=== PATIENT | female | born 1965 | race African-American/Black ===

== ENCOUNTER 2021-02-28 17:57 | Emergency (ER) | payer SELFPAY ==
[~2021-02-28] VITALS: Ht 157.5 cm; Wt 86.2 kg
[2021-02-28] MEDS ORDERED: cloNIDine HCL 0.1 MG TAB PO ONE (18:15)
[2021-02-28 21:37] VITALS: BP 179/98
[2021-02-28] MEDS ORDERED: KETOROLAC TROMETH 60MG/2ML VIAL IM ONE (22:30)
== END 2021-02-28 22:45 | disposition home or self-care (01) ==
LOC: ER 18:01
DX: S02.5XXA Fracture of tooth (traumatic), initial encounter for closed fracture (principal); K04.7 Periapical abscess without sinus; K02.9 Dental caries, unspecified; E66.9 Obesity, unspecified; Z68.34 Body mass index [BMI] 34.0-34.9, adult; X58.XXXA Exposure to other specified factors, initial encounter; Y93.89 Activity, other specified; Y92.89 Other specified places as the place of occurrence of the external cause; Y99.8 Other external cause status
CPT/HCPCS: 96372; 99283; J1885

== ENCOUNTER 2021-04-29 16:15 | Emergency (ER) | payer SELFPAY ==
[~2021-04-29] VITALS: Ht 157.5 cm; Wt 86.2 kg
[2021-04-29 16:21] VITALS: BP 151/95
[2021-04-29] MEDS ORDERED: IOHEXOL 350 MG/ML 100ML IJ ONE (16:29)
== END 2021-04-29 20:06 | disposition left against medical advice (07) ==
LOC: ER 16:15
DX: U07.1 COVID-19 (principal); R06.02 Shortness of breath; Z53.21 Procedure and treatment not carried out due to patient leaving prior to being seen by health care provider
CPT/HCPCS: 71045; 93005